=== PATIENT | female | born 1985 | race Hispanic/Latino ===

== ENCOUNTER 2017-07-31 08:10 | Emergency (ER) | payer MEDICAID ==
[2017-07-31 08:16] VITALS: BP 119/70
[2017-07-31 08:40] LABS: Basophils # (Auto) 0.1 K/mm3 (0.0-0.1); Basophils % (Auto) 0.9 % (0.0-1.8); Eosinophils % (Auto) 0.3 % (0.0-4.3); Hematocrit 42.3 % (30.3-42.9); Hemoglobin 14.1 gm/dl (10.1-14.3); Lymphocytes # (Auto) 1.2 K/mm3 (1.2-5.4); Lymphocytes % (Auto) 18.5 % (13.4-35.0); Mean Corpuscular HGB Conc 33 % (30-34); Mean Corpuscular Hemoglobin 29 pg (28-32); Mean Corpuscular Volume 87 fl (79-97); Monocytes # (Auto) 0.2 K/mm3 (0.0-0.8); Monocytes % (Auto) 3.4 % (0.0-7.3); Platelet Count 120 K/mm3 (140-440); Red Blood Count 4.88 M/mm3 (3.65-5.03); Red Cell Distribution Width 15.4 % (13.2-15.2)
[2017-07-31 09:02] LABS: Alanine Aminotransferase 28 units/L (7-56); Albumin 4.4 g/dL (3.9-5); BUN/Creatinine Ratio 14; Blood Urea Nitrogen 13 mg/dL (7-17); Calcium 9.6 mg/dL (8.4-10.2); Hemolysis Index 10; Lipase 57 units/L (13-60)
--- NOTE | 2017-07-31 10:13 | XRay Report ---
ROUTINE CHEST, TWO VIEWS: HISTORY: Severe constipation, abdominal pain. The trachea, heart, mediastinal contour, lung vargas and bony thorax are unremarkable. IMPRESSION: Unremarkable chest x-ray.
--- NOTE | 2017-07-31 10:13 | XRay Report ---
ABDOMEN, 2 views: History: Severe constipation, abdominal pain. There is no evidence of free air beneath the diaphragms. The gas pattern within the abdomen is unremarkable. There is no evidence of bowel dilatation, significant air-fluid levels, or pathologic calcifications. Organ shadows are unremarkable. No evidence for constipation. Cholecystectomy changes. IMPRESSION: Unremarkable abdomen.
--- NOTE | 2017-07-31 11:12 | Emergency Department Report ---
ED Abdominal Pain HPI - General Chief Complaint: Abdominal Pain Stated Complaint: STOMACH PROBLEMS Time Seen by Provider: 07/31/17 11:06 Source: patient, family Mode of arrival: Ambulatory Limitations: No Limitations - History of Present Illness Initial Comments: 32-year-old female comes in for abdominal pain and severe constipation for 5 days. Patient reports that this started on Sunday. She complains of rectal pain and pressure and lower abdominal pain. Patient denies any fever or chills she does admit to nausea denies any vomiting. Patient had taken Dulcolax without any relief. Patient denies any dysuria. MD Complaint: abdominal pain - Related Data Home Medications Medication Instructions Recorded Confirmed Last Taken Control 05/14/13 05/14/13 Unknown Butalb/Acetaminophen/Caffeine 05/14/13 05/14/13 Unknown [Fioricet 50-325-40 mg Tablet] HYDROcodone/ACETAMINOPHEN [Lortab 05/14/13 05/14/13 Unknown 10 mg-300 mg/15 ml Elxr] Promethazine [Phenergan] 05/14/13 05/14/13 Unknown Previous Rx's Medication Instructions Recorded Last Taken Type Nitrofurantoin [place]/M-Cryst 100 mg PO Q12HR #14 capsule 05/14/13 Unknown Rx [Macrobid] Butalb/Acetamin/Caff 50-325-40 1 each PO Q4H PRN #20 tablet 12/18/15 Unknown Rx [Fioricet] Promethazine [Phenergan TAB] 25 mg PO Q6HR PRN #10 tab 12/18/15 Unknown Rx Allergies Allergy/AdvReac Type Severity Reaction Status Date / Time ciprofloxacin [From Cipro] Allergy Nausea Verified 12/18/15 19:34 ciprofloxacin HCl Allergy Nausea Verified 12/18/15 19:34 [From Cipro] ED Review of Systems ROS: Stated complaint: STOMACH PROBLEMS Other details as noted in HPI ED Past Medical Hx - Past Medical History Previous Medical History?: Yes Hx Headaches / Migraines: Yes Additional medical history: low Fe, low platelets, Scoliosis, 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, IBS - Surgical History Past Surgical History?: Yes Hx Cholecystectomy: Yes Additional Surgical History: - Social History Smoking Status: Never Smoker Substance Use Type: Prescribed - Medications Home Medications: Home Medications Medication Instructions Recorded Confirmed Last Taken Type Control 05/14/13 05/14/13 Unknown History Butalb/Acetaminophen/Caffeine 05/14/13 05/14/13 Unknown History [Fioricet 50-325-40 mg Tablet] HYDROcodone/ACETAMINOPHEN [Lortab 05/14/13 05/14/13 Unknown History 10 mg-300 mg/15 ml Elxr] Nitrofurantoin [place]/M-Cryst 100 mg PO Q12HR #14 capsule 05/14/13 Unknown Rx [Macrobid] Promethazine [Phenergan] 05/14/13 05/14/13 Unknown History Butalb/Acetamin/Caff 50-325-40 1 each PO Q4H PRN #20 tablet 12/18/15 Unknown Rx [Fioricet] Promethazine [Phenergan TAB] 25 mg PO Q6HR PRN #10 tab 12/18/15 Unknown Rx ED Physical Exam - General Limitations: No Limitations General appearance: alert, in no apparent distress - Head Head exam: Present: atraumatic, normocephalic - Eye Eye exam: Present: normal appearance - ENT ENT exam: Present: mucous membranes moist - Respiratory Respiratory exam: Present: normal lung sounds bilaterally. Absent: respiratory distress - Cardiovascular Cardiovascular Exam: Present: regular rate, normal rhythm. Absent: systolic murmur, diastolic murmur, rubs, gallop - GI/Abdominal GI/Abdominal exam: Present: soft, normal bowel sounds - Rectal Rectal exam: Present: normal inspection, normal rectal tone, other (stool is noted in the rectum that is soft). Absent: hemorrhoids, mass, tenderness - Extremities Exam Extremities exam: Present: normal inspection - Back Exam Back exam: Present: normal inspection - Neurological Exam Neurological exam: Present: alert, oriented X3 - Psychiatric Psychiatric exam: Present: anxious ED Course Vital Signs 07/31/17 08:12 Temperature 98.7 F Pulse Rate 107 H Respiratory 20 Rate Blood Pressure 119/70 O2 Sat by Pulse 95 Oximetry ED Medical Decision Making - Lab Data Result diagrams: 07/31/17 08:25 07/31/17 08:25 - Radiology Data Radiology results: report reviewed, image reviewed Ordering Physician: JAQUI LAINEZ MD Date of Service: 07/31/17 Procedure(s): XR abdomen 2V Accession Number(s): [id number] cc: JAQUI LAINZE MD Fluoro Time In Minutes: ABDOMEN, 2 views: History: Severe constipation, abdominal pain. There is no evidence of free air beneath the diaphragms. The gas pattern within the abdomen is unremarkable. There is no evidence of bowel dilatation, significant air-fluid levels, or pathologic calcifications. Organ shadows are unremarkable. No evidence for constipation. Cholecystectomy changes. IMPRESSION: Unremarkable abdomen. Transcribed By: TTR Dictated By: MARCELLUS BATES JR, MD Electronically Authenticated By: MARCELLUS BATES JR, MD Signed Date/Time: 07/31/171003 DD/ 02 TD/TT: 07/31/171003 ROUTINE CHEST, TWO VIEWS: HISTORY: Severe constipation, abdominal pain. The trachea, heart, mediastinal contour, lung vargas and bony thorax are unremarkable. IMPRESSION: Unremarkable chest x-ray. Transcribed By: TTR Dictated By: MARCELLUS BATES JR, MD Electronically Authenticated By: MARCELLUS BATES JR, MD Signed Date/Time: 07/31/171002 DD/ 02 TD/TT: 07/31/171002 - Medical Decision Making Patient's been evaluated by this provider fast track. Discussed with patient that her rectal exam shows that she has some stool in her rectum. There is no signs of hemorrhoids. No signs of stool impaction. Abdominal x-ray shows no constipation. Serum lab work within normal limits. I discussed the patient would need a urinalysis. Patient and mother verbalized understanding. Critical care attestation.: If time is entered above; I have spent that time in minutes in the direct care of this critically ill patient, excluding procedure time. ED Disposition Clinical Impression: Abdominal pain Qualifiers: Abdominal location: lower abdomen, unspecified Qualified Code(s): R10.30 - Lower abdominal pain, unspecified Disposition: DC-07 LEFT AGAINST MED ADVICE Is pt being admited?: No Does the pt Need Aspirin: No Condition: Stable Instructions: Abdominal Pain (ED) Referrals: PRIMARY CARE, [Primary Care Provider] - 3-5 Days
== END 2017-07-31 13:08 | disposition left against medical advice (07) ==
LOC: ED 08:10
DX: K62.89 Other specified diseases of anus and rectum (principal); Z90.49 Acquired absence of other specified parts of digestive tract
CPT/HCPCS: 36415; 71046; 74019; 80053; 83690; 85025; 99284